=== PATIENT | male | born 1990 | race Caucasian/White ===

== ENCOUNTER 2025-01-22 10:15 | Emergency (ER) | payer OTHER ==
[~2025-01-22] VITALS: Ht 175.3 cm; Wt 77.3 kg
[2025-01-22 10:20] VITALS: BP 115/76
[2025-01-22] MEDS ORDERED: PROZAC40 M1 PO (10:28)
[2025-01-22] MEDS ORDERED: WELLBUTRIN 75MG75 MG PO (10:28)
[2025-01-22] MEDS ORDERED: ADDERALL 5 MG TA5 MG PO (10:29)
== END 2025-01-22 11:18 | disposition home or self-care (01) ==
LOC: ED 10:15
DX: H57.12 Ocular pain, left eye (principal)